=== PATIENT | female | born 1960 | race Caucasian/White ===

== ENCOUNTER 2019-02-04 11:38 | Emergency (ER) | payer OTHER ==
[~2019-02-04] VITALS: Ht 152.4 cm; Wt 52.2 kg
[2019-02-04] MEDS ORDERED: XANAX1 MG PO (11:50)
[2019-02-04] MEDS ORDERED: METFORMIN HCL500 MG PO (11:50)
[2019-02-04] MEDS ORDERED: NORCO 5-325 TA1 EACH PO (12:59)
[2019-02-04 13:22] VITALS: BP 113/65
== END 2019-02-04 13:23 | disposition home or self-care (01) ==
LOC: M.ERS 11:38
DX: M79.671 Pain in right foot (principal); E11.9 Type 2 diabetes mellitus without complications; Z88.5 Allergy status to narcotic agent; Z88.8 Allergy status to other drugs, medicaments and biological substances